=== PATIENT | female | born 1955 | race Caucasian/White ===

== ENCOUNTER 2017-09-21 13:35 | Inpatient (IN) | payer OTHER ==
[2017-09-21 14:33] VITALS: BMI 17.2
--- NOTE | 2017-09-21 16:42 | HP ---
CIWA Score - CIWA Score Nausea/Vomitin-Mild Nausea/No Vomiting Muscle Tremors: 2 Anxiety: 4-Mod. Anxious/Guarded Agitation: 1-Slight > Activity Paroxysmal Sweats: 1-Minimal Palms Moist Orientation: 0-Oriented Tacttile Disturbances: 0-None Auditory Disturbances: 0-None Visual Disturbances: 0-None Headache: 3-Moderate CIWA-Ar Total Score: 12 Admission ROS BHS - HPI Chief Complaint: ETOH WITHDRAWAL SYMPTOMS Allergies/Adverse Reactions: Allergies Allergy/AdvReac Type Severity Reaction Status Date / Time No Known Allergies Allergy Verified 09/21/17 15:20 History of Present Illness: PATIENT PRESENTS WITH ETOH WITHDRAWAL SYMPTOMS. DRINKS DAILY UP TO 12 BEERS DAILY SINCE AGE 13. LAST DRINK WAS THIS MORNING. DENIES HX OF SEIZURES FROM WITHDRAWAL/USE. PATIENT ATTEMPTED DETOX OVER 25 YEARS AGO. TAKES TRAMADOL FOR BACK PAIN PRN. PMH INCLUDES OA OF HIPS, HEP C (UNTREATED), ANXIETY, DEPRESSION, PTSD, MIGRAINES AND COPD. DENIES SI/HI AND SUICIDE ATTEMPTS. - Ebola screening Have you traveled outside of the country in the last 21 days: No Have you had contact with anyone from an Ebola affected area: No Have you been sick,other than usual withdrawal symptoms: No Do you have a fever: No - Review of Systems Constitutional: Night Sweats, Changes in sleep, Unexplained wgt Loss EENT: reports: No Symptoms Reported Respiratory: reports: No Symptoms reported Cardiac: reports: Palpitations, Chest Tightness GI: reports: Diarrhea, Nausea, Poor Fluid Intake, Abdominal cramping : reports: No Symptoms Reported Integumentary: reports: Sweating Neuro: reports: Headache, Tremors Endocrine: reports: Unexplained Weight Loss Hematology: reports: No Symptoms Reported Psychiatric: reports: Orientated x3, Anxious, Depressed Patient History - Patient Medical History Hx Anemia: No Hx Asthma: No Hx Chronic Obstructive Pulmonary Disease (COPD): Yes (ON MEDS.) Hx Cancer: No Hx Cardiac Disorders: No Hx Congestive Heart Failure: No Hx Hypertension: No Hx Hypercholesterolemia: No Hx Pacemaker: No HX Cerebrovascular Accident: No Hx Seizures: No Hx Dementia: No Hx Diabetes: No Hx Gastrointestinal Disorders: No Hx Liver Disease: No Hx Genitourinary Disorders: No Hx Sexually Transmitted Disorders: No Hx Renal Disease (ESRD): No Hx Thyroid Disease: No Hx Human Immunodeficiency Virus (HIV): No Hx Hepatitis C: Yes (UNTREATED) Hx Depression: Yes Hx Suicide Attempt: No Hx Bipolar Disorder: No Hx Schizophrenia: No - Patient Surgical History Past Surgical History: Yes Hx Neurologic Surgery: No Hx Cataract Extraction: No Hx Cardiac Surgery: No Hx Lung Surgery: Yes (SPONTANEOUS PNEUMONTHORAX BILATERAL LUNGS IN 1986) Hx Breast Surgery: No Hx Breast Biopsy: No Hx Abdominal Surgery: No Hx Appendectomy: No Hx Cholecystectomy: No Hx Genitourinary Surgery: Yes (BLADDER MESH 2014) Hx Section: Yes (X ONE) Hx Orthopedic Surgery: No Hx Hysterectomy: No Anesthesia Reaction: No - PPD History Previous Implant?: Yes Documented Results: Negative w/o proof Implanted On Prior R Admission?: No PPD to be Administered?: Yes - Reproductive History Patient : No - Smoking Cessation Smoking history: Former smoker Have you smoked in the past 12 months: No If you are a former smoker, when did you quit?: 1986 Hx Chewing Tobacco Use: No Initiated information on smoking cessation: No - Substance & Tx. History Hx Alcohol Use: Yes Hx Substance Use: No Substance Use Type: Alcohol, Prescribed Hx Substance Use Treatment: Yes (OVER 25 YEARS AGO) - Substances Abused Alcohol Route: Oral Frequency: Daily Amount used: 2 6PKS BEER Age of first use: 13 Date of Last Use: 09/21/17 Family Disease History - Family Disease History Family History: Denies Admission Physical Exam BHS - Vital Signs Vital Signs: Vital Signs - 24 hr 09/21/17 14:30 Temperature 97.6 F Pulse Rate 87 Respiratory 16 Rate Blood Pressure 116/82 - Physical General Appearance: Yes: No Apparent Distress, Appropriately Dressed, Thin, Tremorous, Sweating, Anxious HEENTM: Yes: EOMI, Hearing grossly Normal, Normal ENT Inspection, Normocephalic , Normal Voice, SARAI, Pharynx Normal Respiratory: Yes: Chest Non-Tender, Lungs Clear, Normal Breath Sounds, No Respiratory Distress, No Accessory Muscle Use Neck: Yes: No masses,lesions,Nodules, Supple Breast: Yes: Breast Exam Deferred Cardiology: Yes: Regular Rhythm, Regular Rate, S1, S2 Abdominal: Yes: Normal Bowel Sounds, Non Tender, Flat, Soft Genitourinary: Yes: Within Normal Limits Back: Yes: Normal Inspection, Muscle Spasm Musculoskeletal: Yes: full range of Motion, Gait Steady, Back pain, Muscle Pain Extremities: Yes: Normal Inspection, Normal Range of Motion, Non-Tender, Tremors Neurological: Yes: it support manager II-XII NML intact, Fully Oriented, Alert, Motor Strength 5/5, Depressed Affect Integumentary: Yes: Normal Color, Warm, Moist Lymphatic: Yes: Within Normal Limits - Diagnostic (1) Alcohol dependence with uncomplicated withdrawal Current Visit: Yes Status: Acute (2) Anxiety Current Visit: Yes Status: Chronic (3) Migraines Current Visit: Yes Status: Acute Qualifiers: Migraine type: unspecified (4) Depression Current Visit: Yes Status: Chronic Qualifiers: Depression Type: unspecified Qualified Code(s): F32.9 - Major depressive disorder, single episode, unspecified (5) COPD (chronic obstructive pulmonary disease) Current Visit: Yes Status: Chronic Qualifiers: COPD type: unspecified COPD Qualified Code(s): J44.9 - Chronic obstructive pulmonary disease, unspecified Cleared for Admission BHS - Detox or Rehab [facility] Level of Care: Medically Managed Detox Regimen/Protocol: Valium S Breath Alcohol Content Breath Alcohol Content: 0 Urine Pregancy Test - Result Urine Test Results: Negative- NO Line Present Urine Drug Screen - Results Drug Screen Negative: No Urine Drug Screen Results: OPI-Opiates, BZO-Benzodiazepines
[2017-09-21] MEDS ORDERED: MAGNESIUM CITRATE 300 ML BOTTLE PO PRN (16:52)
[2017-09-21] MEDS ORDERED: MAG HYDROX/AL HYDROX/SIMETH 30 ML UNIT-DOSE CUP PO PRN (16:52)
[2017-09-21] MEDS ORDERED: guaiFENesin/D-METHORPHAN HB 10 ML UNIT-DOSE CUPS PO PRN (16:52)
[2017-09-21] MEDS ORDERED: IBUPROFEN 400 MG TABLET (FP) PO PRN (16:52)
[2017-09-21] MEDS ORDERED: hydrOXYzine PAMOATE 50 MG CAPSULE (FP) PO PRN (16:52)
[2017-09-21] MEDS ORDERED: MAGNESIUM HYDROX 2400MG/30ML ORAL SUSPENSION 30 ML CUP PO PRN (16:52)
[2017-09-21] MEDS ORDERED: P-EPHED 60MG/TRIPROLIDI 2.5MG TABLET PO PRN (16:52)
[2017-09-21] MEDS ORDERED: MENTHOL/PHENOL 1 EACH UD MM PRN (16:52)
[2017-09-21] MEDS ORDERED: LOPERAMIDE HCL 2 MG CAPSULE PO PRN (16:52)
[2017-09-21] MEDS ORDERED: diazePAM 5 MG TABLET PO ONE (17:15)
[2017-09-21] MEDS: MELATONIN 5 MG TABLETS PO PRN (22:08)
[2017-09-21] MEDS: diazePAM 5 MG TABLET PO SCH (22:10)
[2017-09-21] MEDS: SUMAtriptan SUCCINATE 50 MG TABLET PO PRN (22:10)
[2017-09-21] MEDS: THIAMINE HCL 100 MG TABLET (FP) PO SCH (22:10)
[2017-09-21] MEDS: FLUTICASONE PROP 0.05% 16 GM NASAL SPRAY NS SCH (22:12)
[2017-09-21 23:10] LABS: URINE APPEARANCE CLEAR; URINE BILIRUBIN NEGATIVE (<2.0 mg/dL); URINE COLOR COLORLESS; URINE GLUCOSE (UA) NEGATIVE (NEGATIVE); URINE KETONE NEGATIVE (NEGATIVE); URINE LEUK ESTERASE NEGATIVE (NEGATIVE); URINE NITRITE NEGATIVE (NEGATIVE); URINE PROTEIN NEGATIVE (NEGATIVE); URINE UROBILINOGEN NEGATIVE mg/dL (0.2-1.0)
[2017-09-21 23:17] LABS: EPI CELLS RARE /HPF (FEW); URINE MUCUS RARE
[2017-09-22] MEDS: diazePAM 5 MG TABLET PO SCH ×3 (06:15→22:15)
[2017-09-22] MEDS: SUMAtriptan SUCCINATE 50 MG TABLET PO PRN ×2 (07:45→20:02)
[2017-09-22 10:06] LABS: HEMOGLOBIN 13.9 GM/dL (10.7-15.3); MCH 32.1 pg (25.7-33.7); MEAN CELL VOLUME 94.6 fl (80-96); MEAN PLT VOLUME 7.6 fl (7.5-11.1); PLATELET COUNT 145 K/MM3 (134-434); RBC 4.33 M/mm3 (3.60-5.2); RDW 12.4 % (11.6-15.6); WHITE BLOOD COUNT 3.6 K/mm3 (4.0-10.0)
[2017-09-22] MEDS: PRENATAL VITAMINS W/ FOLIC ACID TABLET (FP) PO SCH (10:08)
[2017-09-22] MEDS: TIOTROPIUM BROMIDE 18 MCG CAPSULES IH SCH (10:09)
[2017-09-22] MEDS: FLUTICASONE PROP 0.05% 16 GM NASAL SPRAY NS SCH ×2 (10:09→22:14)
[2017-09-22] MEDS: diazePAM 5 MG TABLET PO PRN (10:09)
[2017-09-22 10:14] LABS: CHLORIDE 104 mmol/L (98-107); POTASSIUM 3.8 mmol/L (3.5-5.1); SODIUM 141 mmol/L (136-145)
[2017-09-22 10:51] LABS: ALK PHOS 59 U/L (45-117); ANION GAP 8 (8-16); BILIRUBIN,TOTAL 0.4 mg/dL (0.2-1.0); BLOOD UREA NITROGEN 14 mg/dL (7-18); CALCIUM 9.6 mg/dL (8.5-10.1); CO2 29 mmol/L (21-32); CREATININE 0.8 mg/dL (0.55-1.02); GLUCOSE,RANDOM 66 mg/dL (74-106); SGOT/AST 28 U/L (15-37); SGPT/ALT 29 U/L (12-78)
--- NOTE | 2017-09-22 12:22 | PN ---
[facility] CIWA - CIWA Score Nausea/Vomitin-Mild Nausea/No Vomiting Muscle Tremors: 3 Anxiety: 2 Agitation: 2 Paroxysmal Sweats: 1-Minimal Palms Moist Orientation: 0-Oriented Tacttile Disturbances: 1-Very Mild Itch/Numbness Auditory Disturbances: 0-None Visual Disturbances: 0-None Headache: 0-None Present CIWA-Ar Total Score: 10 S Progress Note (SOAP) Subjective: chronic back pain treated with naproxin wear own shoes for easy ambulation chronic headache sweat tremor mild gi distress trouble sleep at night Objective: 09/22/17 12:20 Vital Signs Temperature 97.3 F L 09/22/17 09:25 Pulse Rate 67 09/22/17 09:25 Respiratory Rate 18 09/22/17 09:25 Blood Pressure 124/81 09/22/17 09:25 O2 Sat by Pulse Oximetry (%) Laboratory Last Values WBC 3.6 K/mm3 (4.0-10.0) L 09/22/17 07:00 RBC 4.33 M/mm3 (3.60-5.2) 09/22/17 07:00 Hgb 13.9 GM/dL (10.7-15.3) 09/22/17 07:00 Hct 41.0 % (32.4-45.2) 09/22/17 07:00 MCV 94.6 fl (80-96) 09/22/17 07:00 MCH 32.1 pg (25.7-33.7) 09/22/17 07:00 MCHC 34.0 g/dl (32.0-36.0) 09/22/17 07:00 RDW 12.4 % (11.6-15.6) 09/22/17 07:00 Plt Count 145 K/MM3 (134-434) 09/22/17 07:00 MPV 7.6 fl (7.5-11.1) 09/22/17 07:00 Sodium 141 mmol/L (136-145) 09/22/17 07:00 Potassium 3.8 mmol/L (3.5-5.1) 09/22/17 07:00 Chloride 104 mmol/L (98-107) 09/22/17 07:00 Carbon Dioxide 29 mmol/L (21-32) 09/22/17 07:00 Anion Gap 8 (8-16) 09/22/17 07:00 BUN 14 mg/dL (7-18) 09/22/17 07:00 Creatinine 0.8 mg/dL (0.55-1.02) 09/22/17 07:00 Creat Clearance w eGFR > 60 (>60) 09/22/17 07:00 Random Glucose 66 mg/dL (74-106) L 09/22/17 07:00 Calcium 9.6 mg/dL (8.5-10.1) 09/22/17 07:00 Total Bilirubin 0.4 mg/dL (0.2-1.0) 09/22/17 07:00 AST 28 U/L (15-37) 09/22/17 07:00 ALT 29 U/L (12-78) 09/22/17 07:00 Alkaline Phosphatase 59 U/L (45-117) 09/22/17 07:00 Total Protein 8.0 g/dl (6.4-8.2) 09/22/17 07:00 Albumin 4.0 g/dl (3.4-5.0) 09/22/17 07:00 Urine Color Colorless 09/21/17 Unknown Urine Appearance Clear 09/21/17 Unknown Urine pH 5.0 (5.0-8.0) 09/21/17 Unknown Ur Specific [place] 1.004 (1.001-1.035) 09/21/17 Unknown Urine Protein Negative (NEGATIVE) 09/21/17 Unknown Urine Glucose (UA) Negative (NEGATIVE) 09/21/17 Unknown Urine Ketones Negative (NEGATIVE) 09/21/17 Unknown Urine Blood 2+ (NEGATIVE) H 09/21/17 Unknown Urine Nitrite Negative (NEGATIVE) 09/21/17 Unknown Urine Bilirubin Negative (<2.0 mg/dL) 09/21/17 Unknown Urine Urobilinogen Negative mg/dL (0.2-1.0) 09/21/17 Unknown Ur Leukocyte Esterase Negative (NEGATIVE) 09/21/17 Unknown Urine WBC (Auto) None /hpf (3-5) 09/21/17 Unknown Urine RBC (Auto) None /hpf (0-3) 09/21/17 Unknown Ur Epithelial Cells Rare /HPF (FEW) 09/21/17 Unknown Urine Mucus Rare 09/21/17 Unknown HIV 1&2 Antibody Screen Negative 09/22/17 07:00 HIV P24 Antigen Negative 09/22/17 07:00 lab noted Assessment: 09/22/17 12:21 withdrawal sx chronic back pain Plan: continue detox naproxin
[2017-09-22] MEDS: NAPROXEN 375 MG TABLET (FP) PO SCH ×2 (13:00→22:15)
--- NOTE | 2017-09-22 14:19 | EKG ---
Test Reason : Blood Pressure : / mmHG Vent. Rate : 071 BPM Atrial Rate : 071 BPM P-R Int : 166 ms QRS Dur : 072 ms QT Int : 406 ms P-R-T Axes : 081 -16 054 degrees QTc Int : 441 ms NORMAL SINUS RHYTHM WITH SINUS ARRHYTHMIA NORMAL ECG NO PREVIOUS ECGS AVAILABLE Confirmed by MD Mari, Kirk ([id number]) on 09/22/2017 2:18:43 PM Referred By: Confirmed By:Kirk Guerra MD
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
[2017-09-22] MEDS: THIAMINE HCL 100 MG TABLET (FP) PO SCH (22:14)
[2017-09-22] MEDS: MELATONIN 5 MG TABLETS PO PRN (22:14)
--- NOTE | 2017-09-23 08:17 | PN ---
Psychiatric Progress Note Vital Signs: Vital Signs Period Temp Pulse Resp BP Sys/Paul Pulse Ox Last 24 Hr 97.3 F-98.1 F 61-90 16-19 100-131/62-81 Date of Session: 09/23/17 Chief Complaint:: Insomnia HPI: Patient reports insomnia, reports taking Ambien 10mg po prn qhs prior to admission Current Medications: Active Medications Generic Name Dose Route Start Last Admin Trade Name Freq PRN Reason Stop Dose Admin Acetaminophen 650 mg 09/21/17 16:52 Tylenol - PO Q4H PRN FEVER Al Hydroxide/Mg Hydroxide 30 ml 09/21/17 16:52 Mylanta Oral Suspension - PO Q6H PRN DYSPEPSIA Diazepam 10 mg 09/21/17 16:56 09/22/17 10:09 Valium - PO 09/24/17 16:55 10 mg Q4H PRN Administration WITHDRAWAL(CONT SUBST) Diazepam 5 mg 09/23/17 10:00 Valium - PO 09/24/17 22:01 BID MAREK Diazepam 5 mg 09/25/17 10:00 Valium - PO 09/25/17 10:01 DAILY MAREK Eucalyptus/Menthol/Phenol/Sorbitol 1 each 09/21/17 16:52 Cepastat Lozenge - MM Q4H PRN SORE THROAT Fluticasone Propionate 2 spray 09/21/17 22:00 09/22/17 22:14 Flonase - NS 2 sprays BID [facility] Administration Guaifenesin 10 ml 09/21/17 16:52 Robitussin Dm - PO Q6H PRN COUGH Hydroxyzine Pamoate 50 mg 09/21/17 16:52 Vistaril - PO Q4H PRN AGITATION Loperamide HCl 4 mg 09/21/17 16:52 Imodium - PO Q6H PRN DIARRHEA Magnesium Citrate 300 ml 09/21/17 16:52 Citroma - PO Q48H PRN CONSTIPATION Magnesium Hydroxide 30 ml 09/21/17 16:52 Milk Of Magnesia - PO DAILY PRN CONSTIPATION Melatonin 5 mg 09/21/17 22:00 09/22/17 22:14 Melatonin PO 5 mg HS PRN Administration INSOMNIA Naproxen 375 mg 09/22/17 11:45 09/22/17 22:15 Naprosyn - PO 375 mg BID [facility] Administration Multivit/Folic Acid/Iron 1 tab 09/22/17 10:00 09/22/17 10:08 Vitamins (Sjr) - PO 1 tab DAILY MAREK Administration Pseudoephedrine/Triprolidine 1 combo 09/21/17 16:52 Actifed - PO TID PRN NASAL CONGESTION Sumatriptan Succinate 100 mg 09/21/17 16:53 09/22/17 20:02 Imitrex - PO 100 mg BID PRN Administration HEADACHE Thiamine HCl 100 mg 09/21/17 22:00 09/22/17 22:14 Vitamin B1 - PO 100 mg HS MAREK Administration Tiotropium [place] 1 puff 09/22/17 10:00 09/22/17 10:09 Spiriva - IH 1 puff DAILY MAREK Administration Zolpidem Tartrate 10 mg 09/23/17 08:08 Ambien - PO 09/27/17 23:59 HS PRN INSOMNIA Provider note:: Start Ambien 10mg po prn Mental Status Exam - Mental Status Exam Alert and Oriented to: Person Cognitive Function: Fair Patient Appearance: Unkempt Mood: Sad Affect: Mood Congruent Patient Behavior: Cooperative Speech Pattern: Appropriate Voice Loudness: Mildly Soft/Quiet Thought Process: Goal Oriented Thought Disorder: Being Controlled Hallucinations: Denies Suicidal Ideation: Denies Homicidal Ideation: Denies Insight/Judgement: Fair Sleep: Difficulty falling asleep Appetite: Weight loss Muscle strength/Tone: Normal Gait/Station: Shuffling Additional Comments: Ambien 10mg po prn Psychiatric Treatment Plan - Problem List (1) Alcohol induced insomnia Current Visit: Yes (2) Alcohol dependence with uncomplicated withdrawal Current Visit: Yes (3) COPD (chronic obstructive pulmonary disease) Current Visit: Yes Qualifiers: COPD type: unspecified COPD Qualified Code(s): J44.9 - Chronic obstructive pulmonary disease, unspecified (4) MDD (major depressive disorder) Current Visit: Yes Comment: History. Nonadherence to doxepin. (5) PTSD (post-traumatic stress disorder) Current Visit: Yes (6) Substance induced mood disorder Current Visit: Yes Initial treatment plan: Ambien 10mg po prn qhs
[2017-09-23] MEDS: SUMAtriptan SUCCINATE 50 MG TABLET PO PRN (08:28)
[2017-09-23] MEDS: PRENATAL VITAMINS W/ FOLIC ACID TABLET (FP) PO SCH (10:06)
[2017-09-23] MEDS: TIOTROPIUM BROMIDE 18 MCG CAPSULES IH SCH (10:06)
[2017-09-23] MEDS: NAPROXEN 375 MG TABLET (FP) PO SCH ×2 (10:07→22:23)
[2017-09-23] MEDS: diazePAM 5 MG TABLET PO SCH ×2 (10:07→22:21)
[2017-09-23] MEDS: FLUTICASONE PROP 0.05% 16 GM NASAL SPRAY NS SCH ×2 (10:07→22:55)
--- NOTE | 2017-09-23 10:21 | PN ---
S CIWA - CIWA Score Nausea/Vomitin-Mild Nausea/No Vomiting Muscle Tremors: 3 Anxiety: 2 Agitation: 2 Paroxysmal Sweats: 1-Minimal Palms Moist Orientation: 0-Oriented Tacttile Disturbances: 0-None Auditory Disturbances: 0-None Visual Disturbances: 0-None Headache: 0-None Present CIWA-Ar Total Score: 9 BHS Progress Note (SOAP) Subjective: sweat tremor restlessness less gi distress Objective: 09/23/17 10:20 Vital Signs Temperature 98.2 F 09/23/17 09:23 Pulse Rate 83 09/23/17 09:23 Respiratory Rate 18 09/23/17 09:23 Blood Pressure 117/72 09/23/17 09:23 O2 Sat by Pulse Oximetry (%) Laboratory Last Values WBC 3.6 K/mm3 (4.0-10.0) L 09/22/17 07:00 RBC 4.33 M/mm3 (3.60-5.2) 09/22/17 07:00 Hgb 13.9 GM/dL (10.7-15.3) 09/22/17 07:00 Hct 41.0 % (32.4-45.2) 09/22/17 07:00 MCV 94.6 fl (80-96) 09/22/17 07:00 MCH 32.1 pg (25.7-33.7) 09/22/17 07:00 MCHC 34.0 g/dl (32.0-36.0) 09/22/17 07:00 RDW 12.4 % (11.6-15.6) 09/22/17 07:00 Plt Count 145 K/MM3 (134-434) 09/22/17 07:00 MPV 7.6 fl (7.5-11.1) 09/22/17 07:00 Sodium 141 mmol/L (136-145) 09/22/17 07:00 Potassium 3.8 mmol/L (3.5-5.1) 09/22/17 07:00 Chloride 104 mmol/L (98-107) 09/22/17 07:00 Carbon Dioxide 29 mmol/L (21-32) 09/22/17 07:00 Anion Gap 8 (8-16) 09/22/17 07:00 BUN 14 mg/dL (7-18) 09/22/17 07:00 Creatinine 0.8 mg/dL (0.55-1.02) 09/22/17 07:00 Creat Clearance w eGFR > 60 (>60) 09/22/17 07:00 Random Glucose 66 mg/dL (74-106) L 09/22/17 07:00 Calcium 9.6 mg/dL (8.5-10.1) 09/22/17 07:00 Total Bilirubin 0.4 mg/dL (0.2-1.0) 09/22/17 07:00 AST 28 U/L (15-37) 09/22/17 07:00 ALT 29 U/L (12-78) 09/22/17 07:00 Alkaline Phosphatase 59 U/L (45-117) 09/22/17 07:00 Total Protein 8.0 g/dl (6.4-8.2) 09/22/17 07:00 Albumin 4.0 g/dl (3.4-5.0) 09/22/17 07:00 Urine Color Colorless 09/21/17 Unknown Urine Appearance Clear 09/21/17 Unknown Urine pH 5.0 (5.0-8.0) 09/21/17 Unknown Ur Specific [place] 1.004 (1.001-1.035) 09/21/17 Unknown Urine Protein Negative (NEGATIVE) 09/21/17 Unknown Urine Glucose (UA) Negative (NEGATIVE) 09/21/17 Unknown Urine Ketones Negative (NEGATIVE) 09/21/17 Unknown Urine Blood 2+ (NEGATIVE) H 09/21/17 Unknown Urine Nitrite Negative (NEGATIVE) 09/21/17 Unknown Urine Bilirubin Negative (<2.0 mg/dL) 09/21/17 Unknown Urine Urobilinogen Negative mg/dL (0.2-1.0) 09/21/17 Unknown Ur Leukocyte Esterase Negative (NEGATIVE) 09/21/17 Unknown Urine WBC (Auto) None /hpf (3-5) 09/21/17 Unknown Urine RBC (Auto) None /hpf (0-3) 09/21/17 Unknown Ur Epithelial Cells Rare /HPF (FEW) 09/21/17 Unknown Urine Mucus Rare 09/21/17 Unknown RPR Titer Nonreactive (NONREACTIVE) 09/22/17 07:00 HIV 1&2 Antibody Screen Negative 09/22/17 07:00 HIV P24 Antigen Negative 09/22/17 07:00 lab noted Assessment: 09/23/17 10:20 withdrawal sx Plan: continue detox
[2017-09-23] MEDS: ACETAMINOPHEN 325 MG TABLET (FP) PO PRN ×2 (13:31→19:02)
[2017-09-23] MEDS: diazePAM 5 MG TABLET PO PRN (19:02)
[2017-09-23] MEDS: THIAMINE HCL 100 MG TABLET (FP) PO SCH (22:21)
[2017-09-23] MEDS: ZOLPIDEM TARTRATE 10 MG TABLET (PARK CARE ONLY) PO PRN (22:27)
[2017-09-24] MEDS: SUMAtriptan SUCCINATE 50 MG TABLET PO PRN ×2 (06:34→22:02)
[2017-09-24] MEDS: FLUTICASONE PROP 0.05% 16 GM NASAL SPRAY NS SCH ×2 (10:17→22:01)
[2017-09-24] MEDS: diazePAM 5 MG TABLET PO SCH ×2 (10:18→22:03)
[2017-09-24] MEDS: TIOTROPIUM BROMIDE 18 MCG CAPSULES IH SCH (10:18)
[2017-09-24] MEDS: PRENATAL VITAMINS W/ FOLIC ACID TABLET (FP) PO SCH (10:18)
[2017-09-24] MEDS: NAPROXEN 375 MG TABLET (FP) PO SCH ×2 (10:18→22:02)
--- NOTE | 2017-09-24 10:57 | PN ---
BHS Progress Note (SOAP) Subjective: feeling better less sweat no tremor Objective: 09/24/17 10:56 Vital Signs Temperature 98.4 F 09/24/17 10:16 Pulse Rate 66 09/24/17 10:16 Respiratory Rate 16 09/24/17 10:16 Blood Pressure 124/74 09/24/17 10:16 O2 Sat by Pulse Oximetry (%) Laboratory Last Values WBC 3.6 K/mm3 (4.0-10.0) L 09/22/17 07:00 RBC 4.33 M/mm3 (3.60-5.2) 09/22/17 07:00 Hgb 13.9 GM/dL (10.7-15.3) 09/22/17 07:00 Hct 41.0 % (32.4-45.2) 09/22/17 07:00 MCV 94.6 fl (80-96) 09/22/17 07:00 MCH 32.1 pg (25.7-33.7) 09/22/17 07:00 MCHC 34.0 g/dl (32.0-36.0) 09/22/17 07:00 RDW 12.4 % (11.6-15.6) 09/22/17 07:00 Plt Count 145 K/MM3 (134-434) 09/22/17 07:00 MPV 7.6 fl (7.5-11.1) 09/22/17 07:00 Sodium 141 mmol/L (136-145) 09/22/17 07:00 Potassium 3.8 mmol/L (3.5-5.1) 09/22/17 07:00 Chloride 104 mmol/L (98-107) 09/22/17 07:00 Carbon Dioxide 29 mmol/L (21-32) 09/22/17 07:00 Anion Gap 8 (8-16) 09/22/17 07:00 BUN 14 mg/dL (7-18) 09/22/17 07:00 Creatinine 0.8 mg/dL (0.55-1.02) 09/22/17 07:00 Creat Clearance w eGFR > 60 (>60) 09/22/17 07:00 Random Glucose 66 mg/dL (74-106) L 09/22/17 07:00 Calcium 9.6 mg/dL (8.5-10.1) 09/22/17 07:00 Total Bilirubin 0.4 mg/dL (0.2-1.0) 09/22/17 07:00 AST 28 U/L (15-37) 09/22/17 07:00 ALT 29 U/L (12-78) 09/22/17 07:00 Alkaline Phosphatase 59 U/L (45-117) 09/22/17 07:00 Total Protein 8.0 g/dl (6.4-8.2) 09/22/17 07:00 Albumin 4.0 g/dl (3.4-5.0) 09/22/17 07:00 Urine Color Colorless 09/21/17 Unknown Urine Appearance Clear 09/21/17 Unknown Urine pH 5.0 (5.0-8.0) 09/21/17 Unknown Ur Specific [place] 1.004 (1.001-1.035) 09/21/17 Unknown Urine Protein Negative (NEGATIVE) 09/21/17 Unknown Urine Glucose (UA) Negative (NEGATIVE) 09/21/17 Unknown Urine Ketones Negative (NEGATIVE) 09/21/17 Unknown Urine Blood 2+ (NEGATIVE) H 09/21/17 Unknown Urine Nitrite Negative (NEGATIVE) 09/21/17 Unknown Urine Bilirubin Negative (<2.0 mg/dL) 09/21/17 Unknown Urine Urobilinogen Negative mg/dL (0.2-1.0) 09/21/17 Unknown Ur Leukocyte Esterase Negative (NEGATIVE) 09/21/17 Unknown Urine WBC (Auto) None /hpf (3-5) 09/21/17 Unknown Urine RBC (Auto) None /hpf (0-3) 09/21/17 Unknown Ur Epithelial Cells Rare /HPF (FEW) 09/21/17 Unknown Urine Mucus Rare 09/21/17 Unknown RPR Titer Nonreactive (NONREACTIVE) 09/22/17 07:00 HIV 1&2 Antibody Screen Negative 09/22/17 07:00 HIV P24 Antigen Negative 09/22/17 07:00 lab noted Assessment: 09/24/17 10:56 mild alcohol withdrawal sx Plan: medically supervised detox
[2017-09-24] MEDS: ACETAMINOPHEN 325 MG TABLET (FP) PO PRN (11:59)
[2017-09-24] MEDS: ZOLPIDEM TARTRATE 10 MG TABLET (PARK CARE ONLY) PO PRN (22:02)
[2017-09-24] MEDS: THIAMINE HCL 100 MG TABLET (FP) PO SCH (22:03)
[2017-09-25 06:50] VITALS: BP 130/74; PULSE 65; TEMP 97.9
[2017-09-25] MEDS: SUMAtriptan SUCCINATE 50 MG TABLET PO PRN (07:33)
--- NOTE | 2017-09-25 08:33 | DS ---
[facility] Detox Discharge Summary Admission Date: 09/21/17 Discharge Date: 09/25/17 - History Present History: Alcohol Dependence Additional Comments: DETOX COMPLETED. ALERT O X 3. NAD. Pertinent Past History: PLEASE SEE DX BELOW - Physical Exam Results Vital Signs: Vital Signs Temperature 97.9 F 09/25/17 06:00 Pulse Rate 65 09/25/17 06:00 Respiratory Rate 18 09/25/17 06:00 Blood Pressure 130/74 09/25/17 06:00 O2 Sat by Pulse Oximetry (%) Pertinent Admission Physical Exam Findings: WITHDRAWAL SX Laboratory Tests 09/21/17 09/22/17 09/22/17 Unknown 07:00 07:00 WBC 3.6 L RBC 4.33 Hgb 13.9 Hct 41.0 MCV 94.6 MCH 32.1 MCHC 34.0 RDW 12.4 Plt Count 145 MPV 7.6 Sodium 141 Potassium 3.8 Chloride 104 Carbon Dioxide 29 Anion Gap 8 BUN 14 Creatinine 0.8 Creat Clearance w eGFR > 60 Random Glucose 66 L Calcium 9.6 Total Bilirubin 0.4 AST 28 ALT 29 Alkaline Phosphatase 59 Total Protein 8.0 Albumin 4.0 Urine Color Colorless Urine Appearance Clear Urine pH 5.0 Ur Specific [place] 1.004 Urine Protein Negative Urine Glucose (UA) Negative Urine Ketones Negative Urine Blood 2+ H Urine Nitrite Negative Urine Bilirubin Negative Urine Urobilinogen Negative Ur Leukocyte Esterase Negative Urine WBC (Auto) None Urine RBC (Auto) None Ur Epithelial Cells Rare Urine Mucus Rare RPR Titer HIV 1&2 Antibody Screen HIV P24 Antigen 09/22/17 09/22/17 07:00 07:00 WBC RBC Hgb Hct MCV MCH MCHC RDW Plt Count MPV Sodium Potassium Chloride Carbon Dioxide Anion Gap BUN Creatinine Creat Clearance w eGFR Random Glucose Calcium Total Bilirubin AST ALT Alkaline Phosphatase Total Protein Albumin Urine Color Urine Appearance Urine pH Ur Specific [place] Urine Protein Urine Glucose (UA) Urine Ketones Urine Blood Urine Nitrite Urine Bilirubin Urine Urobilinogen Ur Leukocyte Esterase Urine WBC (Auto) Urine RBC (Auto) Ur Epithelial Cells Urine Mucus RPR Titer Nonreactive HIV 1&2 Antibody Screen Negative HIV P24 Antigen Negative - Treatment Hospital Course: Detox Protocol Followed, Detoxed Safely, Responded well, Discharged Condition Good Patient has Accepted a Rehab Referral to: DECLINED - Medication Discharge Medications: Ambulatory Orders Clonazepam 1.75 mg PO BID 09/21/17 Fluticasone Prop 0.05% Nasal [Flonase -] 2 spray NS BID 09/21/17 Sumatriptan Succinate 100 mg PO BID PRN 09/21/17 Tramadol HCl 50 mg PO Q8H 09/21/17 Tiotropium [place] [Spiriva] 1 inh PO DAILY #1 cap.w.dev 09/24/17 - Diagnosis (1) Alcohol dependence with uncomplicated withdrawal Current Visit: Yes Status: Acute (2) COPD (chronic obstructive pulmonary disease) Current Visit: Yes Status: Chronic Qualifiers: COPD type: unspecified COPD Qualified Code(s): J44.9 - Chronic obstructive pulmonary disease, unspecified (3) Migraines Current Visit: Yes Status: Chronic Qualifiers: Migraine type: unspecified - AMA Did Patient Leave Against Medical Advice: No
[2017-09-25] MEDS: TIOTROPIUM BROMIDE 18 MCG CAPSULES IH SCH (09:42)
[2017-09-25] MEDS: NAPROXEN 375 MG TABLET (FP) PO SCH (09:42)
[2017-09-25] MEDS: PRENATAL VITAMINS W/ FOLIC ACID TABLET (FP) PO SCH (09:42)
[2017-09-25] MEDS ORDERED: diazePAM 5 MG TABLET PO SCH (10:00)
== END 2017-09-25 09:54 | disposition home or self-care (01) | DRG 897 ==
LOC: YASAS 13:35 → Y6N 15:48
PROVIDERS: ADMIT Family Medicine Addiction Medicine; ATTEND Family Medicine Addiction Medicine
PROC: HZ2ZZZZ Detoxification Services for Substance Abuse Treatment (ICD-10-PCS; principal; 2017-09-21)
DX: F10.230 Alcohol dependence with withdrawal, uncomplicated (principal); F10.282 Alcohol dependence with alcohol-induced sleep disorder; F39 Unspecified mood [affective] disorder; F43.10 Post-traumatic stress disorder, unspecified; F19.24 Other psychoactive substance dependence with psychoactive substance-induced mood disorder; J44.9 Chronic obstructive pulmonary disease, unspecified; G43.909 Migraine, unspecified, not intractable, without status migrainosus; B18.2 Chronic viral hepatitis C; Z87.09 Personal history of other diseases of the respiratory system
CPT/HCPCS: 36415; 80053; 81003; 81015; 85027; 86593; 87389; 93005; 93010